=== PATIENT | male | born 1960 | race Caucasian/White ===

== ENCOUNTER 2017-08-05 12:54 | Emergency (ER) | payer OTHER ==
[~2017-08-05] VITALS: Ht 177.8 cm; Wt 99.8 kg
--- NOTE | ~2017-08-05 | EKG ---
[place] [address] [facility] [place] [address] ELECTROCARDIOGRAM REPORT Name: CHONG ALVARADO [facility]: [id number] Admission: 08/05/17 Attend Phys: Discharge: 08/05/17 Date of : 64 Report #: [id number] THIS REPORT FOR: //name// [facility] ED Test Date: 2017-08-05 Test Time: 13:44:57 Pat Name: CHONG ALVARADO Department: Room: Gender: Track Announcer: Feliberto HOGAN : 1960 Requested By: Kermit Casarez Order Number: [id number] MD: Miller Virgen Measurements Intervals [place] Rate: 66 P: 13 W[place]: 150 QRS: -20 QRSD: 87 T: 36 QT: 398 QTc: 417 Interpretive Statements Sinus rhythm No significant abnormality No previous ECG available for comparison Electronically Signed On 08-06-2017 8:16:49 [employer] by Miller Virgen [email or web address] <ELECTRONICALLY SIGNED> By: Miller Virgen MD, [facility] 08/06/17 0816 1344 1344 Miller Virgen MD, FACC /EPI
[2017-08-05 14:05] LABS: ABSOLUTE NEUTROPHILS 10.3 thou/uL (1.4-8.2); BASOPHILS 0.5 % (0.0-2.0); EOSINOPHILS 0.3 % (0.0-3.0); HEMOGLOBIN 14.1 gm/dL (14.0-18.0); MCH 30.3 pg (26.0-34.0); MCHC 33.4 g/dL (28.0-37.0); MCV 90.6 fL (80.0-100.0); PLATELET COUNT 282 thou/uL (150-400); POLYS 76.2 % (36.0-66.0); RBC 4.64 mil/uL (4.50-6.00); RDW 14.6 % (10.5-14.5); WBC 13.5 thou/uL (4.0-11.0)
[2017-08-05 14:13] LABS: ANION GAP 7 mmol/L (7-16); BUN 15 mg/dL (7-18); CALCIUM 9.1 mg/dL (8.5-10.1); CHLORIDE 102 mmol/L (98-107); CO2 28 mmol/L (21-32); GLUCOSE 103 mg/dL (74-106); POTASSIUM 4.1 mmol/L (3.5-5.1); SODIUM 137 mmol/L (136-145)
[2017-08-05 14:19] LABS: PROTIME 10.3 Seconds (9.3-11.4)
[2017-08-05 14:20] LABS: ALBUMIN 3.4 g/dL (3.4-5.0); SGOT 20 U/L (15-37); SGPT 30 U/L (30-65); TOTAL BILIRUBIN 0.6 mg/dL (<0.1-1.0); TOTAL PROTEIN 7.3 g/dL (6.4-8.2); TROPONIN-I < 0.04 ng/mL (<0.06)
== END 2017-08-05 14:55 | disposition short-term general hospital (02) ==
LOC: ER 12:54
PROVIDERS: Physician Assistant
DX: S82.151A Displaced fracture of right tibial tuberosity, initial encounter for closed fracture (principal); S06.5X0A Traumatic subdural hemorrhage without loss of consciousness, initial encounter; V87.8XXA Person injured in other specified noncollision transport accidents involving motor vehicle (traffic), initial encounter; Y93.89 Activity, other specified; Y92.89 Other specified places as the place of occurrence of the external cause; Y99.8 Other external cause status